=== PATIENT | female | born 1970 | race Hispanic/Latino ===

== ENCOUNTER 2018-03-26 11:18 | Emergency (ER) | payer OTHER, SELFPAY ==
[2018-03-26] MEDS ORDERED: Morphine 4 MG/ML VIAL ONE (11:32)
[2018-03-26] MEDS ORDERED: Ketorolac Tromethamine 30 MG/ML VIAL ONE (11:33)
[2018-03-26 11:59] LABS: #Eosinphils 0.1 thou/uL (0.0-0.7); #Lymphocytes 2.8 thou/uL (1.20-3.40); #Monocytes 0.3 thou/uL (0.11-0.59); #Neutrophils 4.5 thou/uL (1.40-6.50); %Basophils 0.4 % (0.0-1.0); %Eosinophils 0.7 % (0.0-10.0); %Lymphocytes 36.3 % (21.0-51.0); %Monocytes 4.3 % (0.0-10.0); %Neutrophils 58.4 % (42.0-75.0); Hemoglobin 14.7 g/dL (12.0-16.0); Mean Corpuscular HGB CONC 34.1 g/dL (32.0-36.0); Mean Corpuscular Hemoglobin 28.8 pg (27.0-31.0); Mean Corpuscular Volume 84.6 fL (78.0-98.0); Mean Platelet Volume 7.7 fL (7.4-10.4); Platelet Count 277 thou/uL (130-400); RBC Distribution Width 11.6 % (11.5-14.5); White Blood Cell (WBC) Count 7.8 thou/uL (4.8-10.8)
[2018-03-26 12:21] LABS: ALT (SGPT) 27 U/L (8-55); AST (SGOT) 15 U/L (5-34); Albumin 4.1 g/dL (3.5-5.0); Alkaline Phosphatase 103 U/L (40-150); Anion Gap 19 mmol/L (10-20); BUN (Urea Nitrogen) 13 mg/dL (7.0-18.7); Bilirubin, Total 0.5 mg/dL (0.2-1.2); Calc. Creatinine Clearance 0 mL/min (70-130); Calcium 9.9 mg/dL (7.8-10.44); Carbon Dioxide 21 mmol/L (22-29); Chloride 99 mmol/L (98-107); Estimated GFR-MDRD 64; Globulin 3.9 g/dL (2.4-3.5); Glucose 542 mg/dL (70-105); Potassium 4.2 mmol/L (3.5-5.1); Sodium 135 mmol/L (136-145)
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
== END 2018-03-26 13:15 | disposition home or self-care (01) ==
LOC: ERS 11:18
DX: S20.211A Contusion of right front wall of thorax, initial encounter (principal); E11.65 Type 2 diabetes mellitus with hyperglycemia; E78.5 Hyperlipidemia, unspecified; I10 Essential (primary) hypertension; E05.90 Thyrotoxicosis, unspecified without thyrotoxic crisis or storm; Z79.899 Other long term (current) drug therapy; Z79.4 Long term (current) use of insulin; V89.2XXA Person injured in unspecified motor-vehicle accident, traffic, initial encounter
CPT/HCPCS: 36415; 71045; 80053; 82010; 85025; J1885; J2270

== ENCOUNTER 2018-05-20 09:50 | Emergency (ER) | payer SELFPAY ==
[2018-05-20] MEDS ORDERED: Lidocaine 1% PF 5 ML VIAL ONE (10:19)
[2018-05-20] MEDS ORDERED: Lidocaine 1% (PF) 30 ML VIAL ONE (10:20)
[2018-05-20] MEDS ORDERED: Bacitracin Zinc 1 Packet ONE (11:42)
== END 2018-05-20 11:44 | disposition home or self-care (01) ==
LOC: ERS 09:50
DX: S61.210A Laceration without foreign body of right index finger without damage to nail, initial encounter (principal); S61.212A Laceration without foreign body of right middle finger without damage to nail, initial encounter; E11.9 Type 2 diabetes mellitus without complications; E05.90 Thyrotoxicosis, unspecified without thyrotoxic crisis or storm; I10 Essential (primary) hypertension; E78.5 Hyperlipidemia, unspecified; W26.0XXA Contact with knife, initial encounter
CPT/HCPCS: 12001; J2001

== ENCOUNTER 2018-07-07 07:25 | Outpatient (CLI) | payer OTHER ==
--- NOTE | 2018-07-07 08:31 | CT ---
CT OF THE ABDOMEN AND PELVIS WITH AND WITHOUT IV CONTRAST: INDICATION: Reoccurring urinary tract infections with microhematuria. CONTRAST: 70 cc of Isovue 370. COMPARISON: No CT comparisons are available. Abdominal ultrasound was reviewed from 12/23/2017. FINDINGS: No renal or ureteral calculus is identified. No solid renal lesion is identified. No gross urotheli al lesion is identified. The segmentally opacified ureters appear within normal limits. No visible filling defect is seen within the partially opacified bladder. There is fatty infiltration of the liver. The pancreas, adrenal glands, and spleen appear within nor mal limits. There is a normal appendix in the right lower quadrant. The visualized uterus and adnexa appear with in normal limits by CT. No free fluid is evident. There is a mild amount of retained stool within the colon. The small bowel is of normal caliber. There is chronic osteitis pubis and moderate degenerative change involving the SI joints. There is m ild scattered degenerative disk disease of the lower lumbar spine. There is diffuse osteopenia. No acute fracture is evident. IMPRESSION: 1. No renal or ureteral calculus. 2. No focal solid renal lesion demonstrated. 3. No gross urothelial lesion identified. 4. A moderate amount of retained stool within the colon. 5. Fatty liver. POS: [facility]
[2018-07-07] MEDS ORDERED: ISOVUE-370 76%-LOCM 1 ML ONE (15:03)
== END 2018-07-07 07:26 | disposition home or self-care (01) ==
LOC: BICCT 07:25
PROVIDERS: ATTEND Family Medicine
DX: N39.0 Urinary tract infection, site not specified (principal); R31.9 Hematuria, unspecified; K76.0 Fatty (change of) liver, not elsewhere classified; K59.00 Constipation, unspecified
CPT/HCPCS: 74178; Q9966

== ENCOUNTER 2019-04-12 08:24 | Outpatient (CLI) | payer OTHER ==
--- NOTE | 2019-04-12 08:45 | RAD ---
EXAM: 2 views of the right hip HISTORY: Right hip pain for one month COMPARISON: None FINDINGS: 2 views of the right hip shows no evidence of acute fracture or dislocation. No degenerativ e changes are seen in the hip. Sclerotic changes seen surrounding the pubic symphysis.. No soft tissue swelling is present. IMPRESSION: No evidence of acute osseous abnormality.
== END 2019-04-12 08:25 | disposition home or self-care (01) ==
LOC: BICRAD 08:24
PROVIDERS: ATTEND Family Medicine
DX: M25.551 Pain in right hip (principal)

== ENCOUNTER 2022-06-03 14:46 | Outpatient (CLI) | payer OTHER | END 2022-06-03 14:47 | disposition home or self-care (01) | LOC: BICRAD 14:46 | PROVIDERS: ATTEND Family Medicine | DX: M25.562 Pain in left knee (principal); M17.12 Unilateral primary osteoarthritis, left knee ==

== ENCOUNTER 2023-08-02 07:16 | Outpatient (CLI) | payer OTHER | END 2023-08-02 07:17 | disposition home or self-care (01) | LOC: BICULT 07:16 | PROVIDERS: ATTEND Family Medicine | DX: R22.9 Localized swelling, mass and lump, unspecified (principal) | CPT/HCPCS: 76999 ==